=== PATIENT | female | born 1965 | race Caucasian/White ===

== ENCOUNTER 2017-06-20 16:48 | Emergency (ER) | payer SELFPAY ==
--- NOTE | 2017-06-20 17:26 | ER Document Report ---
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 She reports her blood pressure has been high for a while, she is not on any blood pressure medications. Recently her psychiatrist put her on prazosin for anxiety and sleep, it made her feel bad causing dizziness and waking up with headaches so she stopped that medication. She does smoke. I have greeted and performed a rapid initial assessment of this patient. A comprehensive ED assessment and evaluation of the patient, analysis of test results and completion of the medical decision making process will be conducted by additional ED providers. - Related Data Allergies/Adverse Reactions: Sulfa (Sulfonamide Antibiotics) Allergy (Verified 06/20/17 17:20) Physical Exam - Vital signs Vitals: Temp Pulse Resp BP Pulse Ox 97.6 F 87 16 169/100 H 99 06/20/17 17:09 06/20/17 17:09 06/20/17 17:09 06/20/17 17:09 06/20/17 17:09 Course - Vital Signs Vital signs: Temp Pulse Resp BP Pulse Ox 97.6 F 87 16 169/100 H 99 06/20/17 17:09 06/20/17 17:09 06/20/17 17:09 06/20/17 17:09 06/20/17 17:09
[2017-06-20 18:02] LABS: ABSOLUTE BASOPHILS # (AUTO) 0.1 10^3/uL (0.0-0.2); ABSOLUTE EOSINOPHILS # (AUTO) 0.2 10^3/uL (0.0-0.6); ABSOLUTE LYMPHOCYTES (AUTO) 3.3 10^3/uL (0.5-4.7); ABSOLUTE MONOCYTES (AUTO) 0.7 10^3/uL (0.1-1.4); ABSOLUTE NEUT (AUTO) 5.1 10^3/uL (1.7-8.2); BASOPHILS % (AUTO) 1.3 % (0-2); HEMATOCRIT 46.5 % (36.0-47.0); HEMOGLOBIN 15.8 g/dL (12.0-15.5); MEAN CORPUSCULAR HEMOGLOBIN 31.8 pg (27.0-33.4); MEAN CORPUSCULAR HGB CONC 34.1 g/dL (32.0-36.0); MEAN CORPUSCULAR VOLUME 93 fl (80-97); MONOCYTES % (AUTO) 7.3 % (3-13); PLATELET COUNT 323 10^3/uL (150-450); RED BLOOD COUNT 4.98 10^6/uL (3.72-5.28); SEGMENTED NEUTROPHILS % (AUTO) 54.4 % (42-78); TOTAL CELLS COUNTED % (AUTO) 100 %; WHITE BLOOD COUNT 9.3 10^3/uL (4.0-10.5)
--- NOTE | 2017-06-20 18:04 | ER Document Report ---
ED Cardiac - General Chief Complaint: Chest Pain Stated Complaint: CHEST PAIN Time Seen by Provider: 06/20/17 17:19 Notes: The patient is a 52-year-old female, past medical history hypertension, current smoker, anxiety, chronic headaches, presents with several hours of right upper chest pain that feels like a dull ache. She also had an episode where the pain went into her right shoulder, but is no longer having the radiation of pain. She took a baby ASA earlier today. She was taking prazosin for her blood pressure and anxiety, but she has ran out of the medications. She moved to [place] with her sister, but has not had a primary care physician or presentation team member yet. Patient also having her mild dull headache that she has had multiple times in the past and said that Excedrin usually helps. Patient denies numbness, tingling, shortness of breath, back pain, nausea, vomiting, fevers, cough, hemoptysis, leg swelling or recent travel. - Related Data Allergies/Adverse Reactions: rifampin Allergy (Verified 06/20/17 17:25) Sulfa (Sulfonamide Antibiotics) Allergy (Verified 06/20/17 17:20) Home Medications: Current Home Medications Bupropion HCl [Wellbutrin Sr 150 mg Tablet] 1 tab PO DAILY 06/20/17 [History] Cyclobenzaprine HCl [Flexeril 10 mg Tablet] 10 mg PO TIDP PRN 06/20/17 [History] Hydrocodone/Acetaminophen [Vicodin Hp 10-300 mg Tablet] 1 tab PO Q6HP PRN [History] Levothyroxine Sodium [Synthroid] 125 mcg PO DAILY 06/20/17 [History] Lorazepam [Ativan 1 mg Tablet] 2 mg PO BID PRN 06/20/17 [History] Tramadol HCl [Ultram] 100 mg PO TID PRN 06/20/17 [History] Past Medical History - General Information source: Patient - Social History Smoking Status: Current Every Day Smoker Chew tobacco use (# tins/day): No Frequency of alcohol use: None Drug Abuse: None Family History: Reviewed & Not Pertinent Patient has suicidal ideation: No Patient has homicidal ideation: No Renal/ Medical History: Denies: Hx Peritoneal Dialysis Psychiatric Medical History: Reports: Hx Depression Comment Only: Hx Attention Deficit Hyperactivity Disorder - anxiety Past Surgical History: Reports: Hx Appendectomy, Hx Section, Hx Orthopedic Surgery Review of Systems - Review of Systems Notes: REVIEW OF SYSTEMS: CONSTITUTIONAL: -fevers, -chills EENT: -eye pain, -difficulty swallowing, -nasal congestion CARDIOVASCULAR: +chest pain, -syncope. RESPIRATORY: -cough, -SOB GASTROINTESTINAL: -abdominal pain, - nausea, -vomiting, -diarrhea GENITOURINARY: -dysuria, -hematuria MUSCULOSKELETAL: -back pain, -neck pain SKIN: -rash or skin lesions. HEMATOLOGIC: -easy bruising or bleeding. LYMPHATIC: -swollen, enlarged glands. NEUROLOGICAL: -altered mental status or loss of consciousness, +headache, - neurologic symptoms PSYCHIATRIC: -anxiety, -depression. ALL OTHER SYSTEMS REVIEWED AND NEGATIVE. Physical Exam - Vital signs Vitals: Temp Pulse Resp BP Pulse Ox 97.6 F 87 16 169/100 H 99 06/20/17 17:09 06/20/17 17:09 06/20/17 17:09 06/20/17 17:09 06/20/17 17:09 - Notes Notes: PHYSICAL EXAMINATION: GENERAL: Well-appearing, well-nourished and in no acute distress. HEAD: Atraumatic, normocephalic. EYES: Pupils equal round and reactive to light, extraocular movements intact, sclera anicteric, conjunctiva are normal. ENT: nares patent, oropharynx clear without exudates. Moist mucous membranes. NECK: Normal range of motion, supple without lymphadenopathy LUNGS: Breath sounds clear to auscultation bilaterally and equal. No wheezes rales or rhonchi. HEART: Regular rate and rhythm without murmurs ABDOMEN: Soft, nontender, normoactive bowel sounds. No guarding, no rebound. No masses appreciated. EXTREMITIES: Normal range of motion, no pitting or edema. No cyanosis. NEUROLOGICAL: Cranial nerves grossly intact. Normal speech, normal gait. Normal sensory and motor exams. PSYCH: Normal mood, normal affect. SKIN: Warm, Dry, normal turgor, no rashes or lesions noted. Course - Re-evaluation Re-evalutation: Patient with about 6 hours of right upper chest pain. 2 EKGs performed 2 hours apart do not show any ischemic or dynamic changes. 2 sets of troponins are also negative and chest x-ray does not show any acute findings. Her HEART score is 3 and her symptoms are atypical for aortic dissection or PE at this time. Provided patient with follow-up at primary care physician and presentation team member for further evaluation and treatment. She is requesting a new blood pressure medication, since she thinks that prazosin has too many side effects. Patient also with her dull headache that she frequently has and is chronic in nature. No focal neuro deficits and symptoms are atypical for meningitis, SAH or ICH at this time. Will begin her on low-dose amlodipine until she can see her primary care physician for further adjustments. Given very strict return precautions and she understands. - Vital Signs Vital signs: Temp Pulse Resp BP Pulse Ox 97.6 F 87 18 162/98 H 100 06/20/17 17:09 06/20/17 17:09 06/20/17 19:00 06/20/17 18:41 06/20/17 19:00 - Laboratory Result Diagrams: 06/20/17 17:45 06/20/17 17:45 Laboratory results interpreted by me: 06/20/17 06/20/17 06/20/17 17:45 17:45 17:45 Hgb 15.8 H Carbon Dioxide 33 H Calcium 10.3 H Ur Leukocyte Esterase TRACE H - Diagnostic Test Radiology reviewed: Image reviewed, Reports reviewed Radiology results interpreted by me: CXR: NAD - EKG Interpretation by Me EKG shows normal: Sinus rhythm, [place], Intervals, QRS Complexes, ST-T Waves Rate: Normal When compared to previous EKG there are: Previous EKG unavailable Discharge - Discharge Clinical Impression: Chest pain Qualifiers: Chest pain type: unspecified Qualified Code(s): R07.9 - Chest pain, unspecified Hypertension Qualifiers: Hypertension type: unspecified Qualified Code(s): I10 - Essential (primary) hypertension Condition: Stable Disposition: HOME, SELF-CARE Additional Instructions: CHEST PAIN OF UNCLEAR CAUSE: The exact cause of your chest pain isn't clear. Fortunately, there is no evidence of a dangerous medical condition. Further testing may be required to find the source of the pain. Most often, we find that this pain is coming from the chest wall -- the muscles or rib joints in the chest. But chest pain can come from the lung and lung lining, the esophagus, the heart valves or heart lining, and even the stomach or gallbladder. Rest. Eat lightly until the pain is gone. We may prescribe medicine for pain and inflammation. You should call the physician immediately if the pain radiates to the shoulder, jaw or arms; if you start to run a fever or develop a cough; or if you develop shortness of breath, or other new or alarming symptoms. NORMAL EXAM AND WORKUP: At this time, your examination and workup show no significant abnormality. No significant abnormal physical findings were noted. All laboratory, EKG, and imaging (x-ray, CT scans, ultrasound) studies that were ordered show no significant abnormality. Although your examination and all studies that were ordered showed no significant abnormal finding, there are no examinations and no studies that are 100% accurate. There is always the possibility that some abnormality could exist and not be detected with physical examination or within the limits and capabilities of laboratory and other studies. You should return or follow up as you were instructed on your visit today for further evaluation if your symptoms do not resolve. CHEST WALL PAIN: Your chest pain may be coming from the chest wall. This is often caused by straining the muscles or joints in the chest during physical activity, direct trauma, coughing, or vigorous vomiting. Persons with arthritis are especially prone to this type of pain, due to inflammation of the cartilage joints near the breast bone. Occasionally, no cause can be found. Rest from strenuous physical activity. This kind of chest pain is usually made worse by movement of the chest. Depending on the symptoms, we may prescribe medicine for pain, muscle relaxation, and antiinflammatory effects. If the pain is new, and seems to be due to muscle strain, cold packs can help. Otherwise, apply gentle warmth to the painful area for 15 minutes every hour or two. You should call contact the doctor immediately if things change. Further evaluation is needed if you develop a fever or cough, if the nature of the pain changes, or if you become short of breath. ANGINA EPISODE: Your physician has diagnosed the pain you experienced as an episode of angina. Angina occurs when a portion of the heart muscle temporarily lacks oxygen. It does not cause any permanent heart damage, but serves as a warning. Hospitalization is not necessary now. Evaluation of your cardiac condition , and medical therapy for angina will be necessary. It's important you be sure to keep all appointments and take medication exactly as prescribed. Angina is usually treated with a type of "nitrate" medication. This is available as ointment, pills, or sublingual (under the tongue) tablets. Depending on your clinical situation, other medications may be added to help control angina. These may include beta blockers or calcium blockers. If episodes of angina are occurring with increased frequency, or if chest pain lasts longer than 15 minutes or does not respond to nitroglycerin, you must seek emergency medical care immediately. ACID REFLUX DISEASE (GERD): Gastro-Esophageal Reflux Disease (GERD) is caused by stomach acid refluxing back up into the esophagus. The valve at the end of the esophagus may be weak. This is common in persons with a hiatal hernia. GERD symptoms can include indigestion, chest pain, heartburn, or food "sticking." Certain foods, alcohol, and aspirin can make GERD worse. Treatment depends on the severity. Usually, antacids or acid-suppressing medicines are used. When the esophagus is acutely inflamed, the physician will often prescribe membrane-protective drugs such as Carafate. Some patients benefit from medication such as Reglan that tightens the valve at the top of the stomach. Avoid those foods that bring on your symptoms. For many people, these foods are coffee, chocolate, onions, garlic, and carbonated drinks. Don't use alcohol, aspirin, caffeine, or tobacco. Don't eat late at night -- within 4 hours of bedtime. Don't over-eat. If necessary, elevate the head of your bed about 4 inches so that stomach acid will not roll up into your esophagus. Call the doctor if you develop severe chest pain, inability to swallow fluids, fever, or worsening symptoms. ASPIRIN: Aspirin has been shown to have a beneficial effect on blood circulation by reducing the clotting effect of platelets in the blood. These beneficial effects can be achieved by taking just a single baby (81 mg) aspirin a day. It is recommended that any person over the age of forty take a single baby aspirin every day for heart and brain circulation, unless you are allergic to aspirin or have some significant bleeding disorder. It is strongly recommended that people who have proven cardiac or blood circulation disturbances should take a baby aspirin every day. FOLLOW-UP CARE: If you have been referred to a physician for follow-up care, call the physician s office for an appointment as you were instructed or within the next two days. If you experience worsening or a significant change in your symptoms, notify the physician immediately or return to the Emergency Department at any time for re-evaluation. HIGH BLOOD PRESSURE REQUIRING TREATMENT: Your blood pressure is high. This is called "hypertension." Today's reading was 168/98 (normal is less than 140/90). Your history and exam suggest that this is not a temporary problem. You need treatment of your blood pressure. If left untreated, high blood pressure greatly increases your risk of heart attack and stroke. Please don't ignore this problem. If you have blood pressure medicine but aren't using it regularly, start taking it again. Some simple things you can do to help are: Get some aerobic exercise for at least 20 minutes on a daily basis. (See your doctor before beginning any new exercise program.) Eat a low-fat diet. Lose excess weight. Avoid salty foods and avoid adding salt to any of the foods you eat. Avoid diet pills, decongestants, "energizing" herbs, and other medicines that elevate blood pressure. There are many different medicines that treat blood pressure. If your medication causes unpleasant side effects, call your doctor. There are others you can try. Treating hypertension is a life-long investment in your health. CALCIUM CHANNEL BLOCKERS: A medication of the calcium channel renetta type has been prescribed for you. Examples of this type of medicine are Calan, Isoptin, Procardia, and Cardizem. These medicines have a variety of uses, including prevention of angina attacks, treatment of blood pressure, regulation of certain heart rhythm problems, and prevention of migraine headaches. Calcium channel blockers work by interfering with the flow of calcium in cell membranes. This results in dilation of blood vessels, and slowing of electrical conduction in the heart. A slight dizziness (due to a fall in blood pressure) may occur with the first dose, and sometimes even with later doses. This may make you prone to dizziness if you stand up suddenly. Call the doctor if lightheadedness is severe, or if you develop palpitations, shortness of breath, or any other new or alarming symptoms. FOLLOW-UP CARE: If you have been referred to a physician for follow-up care, call the physician s office for an appointment as you were instructed or within the next two days. If you experience worsening or a significant change in your symptoms, notify the physician immediately or return to the Emergency Department at any time for re-evaluation. Prescriptions: Amlodipine Besylate 5 mg PO DAILY #30 tab Referrals: JAZMIN LARRY MD [ACTIVE STAFF] - Follow up as needed ELLIS CHASE MD [ACTIVE STAFF] - Follow up as needed
--- NOTE | 2017-06-20 18:09 | RADIOLOGY REPORT (SQ) ---
EXAM DESCRIPTION: CHEST PA/LAT COMPLETED DATE/TIME: 06/20/2017 5:54 pm REASON FOR STUDY: chest pain, elevated BP COMPARISON: None. EXAM PARAMETERS: NUMBER OF VIEWS: two views TECHNIQUE: Digital Frontal and Lateral radiographic views of the chest acquired. RADIATION DOSE: NA LIMITATIONS: none FINDINGS: LUNGS AND PLEURA: No opacities, masses or pneumothorax. No pleural effusion. MEDIASTINUM AND HILAR STRUCTURES: No masses or contour abnormalities. HEART AND VASCULAR STRUCTURES: Heart normal size. No evidence for failure. BONES: No acute findings. HARDWARE: None in the chest. OTHER: No other significant finding. IMPRESSION: NO SIGNIFICANT RADIOGRAPHIC FINDING IN THE CHEST. TECHNICAL DOCUMENTATION: JOB ID: [id number] [employer]- All Rights Reserved
[2017-06-20 18:15] LABS: APPEARANCE,URINE SLIGHTLY-CLOUDY; BILIRUBIN,URINE NEGATIVE (NEGATIVE); COLOR,URINE YELLOW; GLUCOSE, URINE NEGATIVE (NEGATIVE); KETONES,URINE NEGATIVE (NEGATIVE); LEUKOCYTE ESTERASE,URINE TRACE (NEGATIVE); NITRITE,URINE NEGATIVE (NEGATIVE); PROTEIN,URINE NEGATIVE (NEGATIVE); URINE SPECIFIC GRAVITY 1.016; UROBILINOGEN,URINE NEGATIVE mg/dL (<2.0)
[2017-06-20 18:17] LABS: ALANINE AMINOTRANSFERASE 20 U/L (9-52); ALKALINE PHOSPHATASE 62 U/L (38-126); ANION GAP 10 (5-19); ASPARTATE AMINO TRANSFERASE 19 U/L (14-36); BILIRUBIN,DIRECT 0.2 mg/dL (0.0-0.4); BILIRUBIN,TOTAL 0.2 mg/dL (0.2-1.3); BLOOD UREA NITROGEN 15 mg/dL (7-20); CALCIUM 10.3 mg/dL (8.4-10.2); CARBON DIOXIDE 33 mmol/L (22-30); CHLORIDE 98 mmol/L (98-107); CREATINE KINASE 55 U/L (30-135); GLUCOSE 96 mg/dL (75-110); POTASSIUM 4.1 mmol/L (3.6-5.0); SODIUM 140.7 mmol/L (137-145); TOTAL PROTEIN 8.2 g/dL (6.3-8.2)
[2017-06-20] MEDS ORDERED: AMLODIPINE BESYLATE 5 MG TABLET PO ONE (19:44)
[2017-06-20] MEDS ORDERED: IBUPROFEN 600 MG TABLET PO ONE (19:58)
[2017-06-20] MEDS ORDERED: ACETAMINOPHEN 325 MG TABLET PO ONE (19:58)
[2017-06-20 20:11] VITALS: BP 162/99
--- NOTE | 2017-06-23 12:46 | EKG REPORT ---
SEVERITY:- ABNORMAL ECG - SINUS RHYTHM RIGHT ATRIAL ABNORMALITY BORDERLINE INFERIOR Q WAVES BORDERLINE T ABNORMALITIES, ANT-LAT LEADS : Confirmed by: Alivia Meadows MD 23-Jun-2017 12:45:40
--- NOTE | 2017-06-23 12:46 | EKG REPORT ---
SEVERITY:- ABNORMAL ECG - SINUS RHYTHM CONSIDER INFERIOR INFARCT NONSPECIFIC T ABNORMALITIES, ANT-LAT LEADS : Confirmed by: Alivia Meadows MD 23-Jun-2017 12:45:36
== END 2017-06-20 20:11 | disposition home or self-care (01) ==
LOC: ER 16:48
DX: R07.9 Chest pain, unspecified (principal); I10 Essential (primary) hypertension; F17.200 Nicotine dependence, unspecified, uncomplicated; F41.9 Anxiety disorder, unspecified; R51 Headache; M25.511 Pain in right shoulder; Z79.899 Other long term (current) drug therapy
CPT/HCPCS: 36415; 71020; 80053; 81001; 82550; 84484; 85025; 93005; 93010; 99285

== ENCOUNTER 2017-08-08 15:25 | Emergency (ER) | payer SELFPAY ==
[2017-08-08 15:45] VITALS: BP 143/94
--- NOTE | 2017-08-08 16:23 | ER Document Report ---
ED Medical Screen (RME) - General Chief Complaint: Suicidal Ideation Stated Complaint: BACK PAIN Time Seen by Provider: 08/08/17 16:17 Mode of Arrival: Ambulatory Information source: Patient Notes: This is a 52-year-old female with a history of chronic back pain, depression and anxiety who presents to the emergency room with back pain and depression in the setting of running out of her medicines. The patient gets her medicines from [place] (she is in town temporarily for the next few months with her sister). She states that her medicines were supposed to be mailed to her and she has been without for the last 3 days. She also states that she recently fell and she has increasing back pain. She denies any saddle anesthesia, urinary retention or any changes in motor weakness. The patient does ambulate with a cane TRAVEL OUTSIDE OF THE [place] IN LAST 30 DAYS: No - HPI Onset: Last week Onset/Duration: Gradual Quality of pain: Dull Severity: Moderate Pain Level: 2 Associated Symptoms: denies: Chest pain, Shortness of breath Exacerbated by: Movement Relieved by: Remaining still Similar symptoms previously: Yes Recently seen / treated by doctor: No - Related Data Smoking: Cigarettes Frequency of alcohol use: None Drug Abuse: None Allergies/Adverse Reactions: rifampin Allergy (Verified 08/08/17 16:17) Sulfa (Sulfonamide Antibiotics) Allergy (Verified 08/08/17 16:17) Past Medical History - General Information source: Patient - Social History Cigarette use (# per day): Yes Chew tobacco use (# tins/day): No - 1 pack per day Frequency of alcohol use: None Drug Abuse: None Lives with: Family Family history: None - Past Medical History Cardiac Medical History: Reports: Hx Hypercholesterolemia, Hx Hypertension Pulmonary Medical History: Reports: Hx COPD Renal/ Medical History: Denies: Hx Peritoneal Dialysis GI Medical History: Reports: Hx Gastroesophageal Reflux Disease Psychiatric Medical History: Reports: Hx Depression Comment Only: Hx Attention Deficit Hyperactivity Disorder - anxiety Past Surgical History: Reports: Hx Appendectomy, Hx Section - x2, Hx Orthopedic Surgery - Right foot Review of Systems - Review of Systems Notes: Review of systems: Constitutional: Denies fever, chills. EENT: Denies ear pain, sinus tenderness, throat pain, throat swelling. Cardiovascular: Denies chest pain, palpitations, dyspnea or edema. Respiratory: Denies wheezing, cough, hemoptysis. Abdomen: Denies abdominal pain, nausea, vomiting, diarrhea. Denies BRBPR or melena. Genitourinary: Denies dysuria, pyuria, hematuria, flank pain. Musculoskeletal: See H&P Neurologic: See H&P Psychiatric: No suicidal ideation Skin: Denies rash, lesions. Physical Exam - Vital signs Vitals: Temp Pulse Resp BP Pulse Ox 98.7 F 85 16 143/94 H 99 08/08/17 15:41 08/08/17 15:41 08/08/17 15:41 08/08/17 15:41 08/08/17 15:41 Notes: Physical exam: GENERAL: 52-year-old female, alert and oriented 3, no acute distress HEAD: Atraumatic, normocephalic. EYES: Pupils equal round and reactive to light, extraocular movements intact, sclera anicteric, conjunctiva are normal. ENT: Moist mucous membranes. NECK: Normal range of motion, supple LUNGS: Breath sounds clear to auscultation bilaterally and equal. No wheezes rales or rhonchi. HEART: Regular rate and rhythm without murmurs, rubs or gallops. ABDOMEN: Soft, normoactive bowel sounds. No tenderness to palpation. No guarding, no rebound. No masses appreciated. EXTREMITIES: Normal range of motion, no pitting or edema. No clubbing or cyanosis. NEUROLOGICAL: Cranial nerves II through XII grossly intact. Normal speech, moving all extremities. PSYCH: Normal mood, normal affect. SKIN: Warm, Dry, normal turgor, no rashes or lesions noted. Course - Vital Signs Vital signs: Temp Pulse Resp BP Pulse Ox 98.7 F 85 16 143/94 H 99 08/08/17 15:41 08/08/17 15:41 08/08/17 15:41 08/08/17 15:41 08/08/17 15:41 Doctor's Discharge - Discharge Clinical Impression: Chronic back pain, Depression Condition: Stable Disposition: HOME, SELF-CARE Instructions: Anxiety ([facility]) Additional Instructions: Thank you for choosing [facility] for your care. The examination and treatment you have received in the Emergency Department today has been rendered on an emergency basis only and is not intended to be a substitute for complete medical care. You should contact your doctor as it is important that she/he examine you for any new or remaining problems. If given a copy of any lab tests or radiology reports, please bring them with you when you see your physician. If your problem worsens or new symptoms appear and you are unable to arrange prompt follow-up care, return to the Emergency Department. Instructions: Continue current medicines Return to the emergency room if you have any numbness to the inner thighs, motor weakness. Follow-up with a primary care doctor so that you could get seen by a back specialist or commercial painter in town Primary Care Doctor's affiliated with [facility]: If you do not have a primary care doctor or you are unable to get an appointment during that time, you can try one of the doctor's below. These are internal medicine doctor's that have admitting priveledges to the hospital ( they will see you both in the office as well as in this hospital if you are ever hospitalized here). Dr. Katy Hull [address], [place] [address] [phone] Dr Kraus Address: [address] [place] [address] [place] [address] Dr Mendoza Address: [address] [place] [address] , [place] [address] If you don't have insurance: follow-up at the [facility] which is a free clinic. [address], [address] [place] [id number] Prescriptions: Gabapentin 200 mg PO QHS #7 capsule Hydrocodone/Acetaminophen [[place] 5-325 mg Tablet] 1 tab PO Q6HP PRN #28 tablet PRN Reason: Amlodipine Besylate 5 mg PO DAILY #7 tab Bupropion HCl [Wellbutrin Sr 150 mg Tablet] 1 tab PO DAILY #7 tablet.sa Citalopram Hydrobromide [Celexa 40 mg Tablet] 1 tab PO DAILY #30 tablet Levothyroxine Sodium 125 mcg PO DAILY #7 tablet Lorazepam [Ativan 1 mg Tablet] 1 tab PO TID #20 tablet
== END 2017-08-08 16:30 | disposition home or self-care (01) ==
LOC: ER 15:25
DX: F32.9 Major depressive disorder, single episode, unspecified (principal); G89.29 Other chronic pain; M54.9 Dorsalgia, unspecified; T50.906A Underdosing of unspecified drugs, medicaments and biological substances, initial encounter; Z91.128 Patient's intentional underdosing of medication regimen for other reason; Z91.14 Patient's other noncompliance with medication regimen; Z91.81 History of falling; F17.200 Nicotine dependence, unspecified, uncomplicated; I10 Essential (primary) hypertension; J44.9 Chronic obstructive pulmonary disease, unspecified; Z88.1 Allergy status to other antibiotic agents; Z88.2 Allergy status to sulfonamides
CPT/HCPCS: 99284

== ENCOUNTER 2017-10-08 16:36 | Emergency (ER) | payer SELFPAY ==
[2017-10-08 16:40] VITALS: BP 149/98
[2017-10-08] MEDS ORDERED: KETOROLAC TROMETHAMINE INJ/PF 30 MG/1 ML SDV IM ONE (17:15)
--- NOTE | 2017-10-08 17:36 | ER Document Report ---
ED Neck/Back Problem - General Chief Complaint: Back Pain Stated Complaint: BACK PAIN Time Seen by Provider: 10/08/17 16:52 Mode of Arrival: Ambulatory Information source: Patient TRAVEL OUTSIDE OF THE [place] IN LAST 30 DAYS: No - HPI Patient complains to provider of: Pain, Lower back Notes: Patient is here with complaints of low back pain. Patient has a history of low back pain. States that this is his normal pain that she typically has. The pain radiates down the right leg which is normal for her as well. She denies any recent falls or injuries. She is not on any blood thinning medications. She is from [facility], but is here visiting. She is not sure exactly how long she is going to be in [facility]. She was established with a new primary care doctor yesterday and had all of her medications refilled except for her Ativan and her Moraga. She is here in the emergency department requesting a refill of her Ativan and her Moraga. Patient was seen here a few months ago and had all of her medications refilled at that time. She denies any abdominal pain. She denies any nausea, vomiting, diarrhea. She denies any bowel or bladder dysfunction. She is not on blood thinners. She denies any IV drug use. No chest pain or shortness of breath. No rash. She denies dysuria or hematuria. Her pain is worse with movement and better with rest. She states that she has been taking Flexeril without any relief. She denies any other complaints at this time. - Related Data Allergies/Adverse Reactions: rifampin Allergy (Verified 08/08/17 16:17) Sulfa (Sulfonamide Antibiotics) Allergy (Verified 08/08/17 16:17) Past Medical History - Social History Smoking Status: Current Every Day Smoker Chew tobacco use (# tins/day): No Frequency of alcohol use: Rare Drug Abuse: None Family History: Reviewed & Not Pertinent Patient has suicidal ideation: No Patient has homicidal ideation: No - Past Medical History Cardiac Medical History: Reports: Hx Hypercholesterolemia, Hx Hypertension Pulmonary Medical History: Reports: Hx COPD Renal/ Medical History: Denies: Hx Peritoneal Dialysis GI Medical History: Reports: Hx Gastroesophageal Reflux Disease Psychiatric Medical History: Reports: Hx Depression Comment Only: Hx Attention Deficit Hyperactivity Disorder - anxiety Past Surgical History: Reports: Hx Appendectomy, Hx Section - x2, Hx Orthopedic Surgery - Right foot Review of Systems - Review of Systems -: Yes All other systems reviewed and negative Physical Exam - Vital signs Vitals: Temp Pulse Resp BP Pulse Ox 97.8 F 91 14 149/98 H 97 10/08/17 16:39 10/08/17 16:39 10/08/17 16:39 10/08/17 16:39 10/08/17 16:39 - Notes Notes: GENERAL: alert, cooperative, nontoxic, no distress. HEAD: normocephalic, atraumatic EYES: conjunctiva pink without discharge, no external redness or swelling. EARS: no external swelling, no external redness NOSE: atraumatic, no external swelling MOUTH/THROAT: mucous membranes moist and pink, posterior pharynx without erythema, swelling, exudate. No trismus or drooling. NECK: soft, supple, full range of motion, no meningismus. CHEST: no distress, lungs clear and equal throughout. No wheezing, rales, rhonchi. CARDIAC: regular rate and rhythm, no murmur, normal capillary refill, normal pulses. No peripheral edema noted. ABDOMEN: soft, nontender, no pusatile mass. BACK: No CVA tenderness. Tenderness across the entire lower back and lumbar paraspinal muscles bilaterally. Mild limited range of motion secondary to pain. EXTREMITIES: full range of motion of all extremities. No redness, no swelling. NEURO: alert and oriented A&O x 3, no focal deficits, full range of motion of all extremities. 5 out of 5 flexion and extension of the lower extremities bilaterally. Patellar and Achilles deep tendon reflexes are +2 bilaterally. Normal sensation with no saddle anesthesia. Patient can dorsiflex the great toes bilaterally. PYSCH: appropriate mood, affect. Patient is cooperative. SKIN: pink, warm, dry, no rash. Course - Re-evaluation Re-evalutation: 10/08/17 17:33 Patient is nontoxic appearing with stable vitals. Patient has a history of chronic back pain. The pain as she is experiencing today is her typical chronic back pain. She has had no recent falls or injuries. Patient was seen by new primary care physician yesterday and had all of her medications refilled aside from her Ativan and her Moraga and she is here requesting a refill of these medications. She has been referred to pain management as well as psychiatry to have these medications refilled. Patient states that she has been out of these medications for quite some time. On exam the patient has no sign or risk of cauda equina, epidural abscess/bleed, discitis, osteomyelitis, AAA, UTI, pyelonephritis. She has a completely benign exam at this time with no saddle anesthesia. She has a normal neurovascular exam. Normal reflexes. Patient can be discharged home without further workup at this time. I explained that we cannot refill narcotic medications were as well as benzodiazepines from the emergency department. I will discharge the patient home with a prescription for Voltaren as well as Zanaflex. She is instructed to follow-up with her pain doctor as referred per her primary care doctor as well as her psychiatrist as referred per her family doctor. She was instructed to follow-up sooner for worsening pain, high fever, difficulty controlling her bowels or bladder, abdominal pain, or for any further concerns. The patient is noted to have elevated blood pressure during today's emergency department visit. The patient was informed of this finding. The patient was instructed that this may be related to pre-hypertension and requires further evaluation with a primary care provider. The patient has no hypertensive symptoms at this time. The patient's emergency department workup and current diagnosis were explained to the patient and or family. Follow-up instructions were provided. Medications if prescribed were discussed. Instructions for when to return to the emergency department including specific worrisome symptoms were discussed with the patient and/or family. - Vital Signs Vital signs: Temp Pulse Resp BP Pulse Ox 97.8 F 91 14 149/98 H 97 10/08/17 16:39 10/08/17 16:39 10/08/17 16:39 10/08/17 16:39 10/08/17 16:39 Discharge - Discharge Clinical Impression: Chronic back pain Qualifiers: Back pain location: low back pain Back pain laterality: bilateral Sciatica presence: with sciatica Sciatica laterality: sciatica of right side Qualified Code(s): M54.41 - Lumbago with sciatica, right side; G89.29 - Other chronic pain ; G89.29 - Other chronic pain Condition: Stable Disposition: HOME, SELF-CARE Instructions: Ice Packs ([facility]), Low Back Pain ([facility]), Chronic Back Pain ([facility]), Chronic Pain Control ([facility]) Additional Instructions: Take medications as prescribed. Stop taking her Flexeril. Follow-up with the pain doctor referred by your family doctor at the next available appointment. Follow-up with the psychiatrist referred by her family doctor to next available appointment. Follow-up sooner for severe worsening pain, high fever, go to controlling her bowels or bladder, severe abdominal pain, persistent vomiting, or for any further concerns. Your blood pressure was elevated during today's visit. Have this rechecked with your doctor. Prescriptions: Diclofenac Sodium [Voltaren 50 Mg Deysi.] 50 mg PO BID #20 tablet. Tizanidine HCl [Zanaflex 4 Mg Tablet] 4 mg PO BID PRN #10 tablet PRN Reason: Forms: Elevated Blood Pressure, Smoking Cessation Education Referrals: [facility] [Provider Group] - Follow up as needed
== END 2017-10-08 17:42 | disposition home or self-care (01) ==
LOC: ER 16:36
DX: M54.41 Lumbago with sciatica, right side (principal); G89.29 Other chronic pain; M79.604 Pain in right leg; Z79.899 Other long term (current) drug therapy; F17.200 Nicotine dependence, unspecified, uncomplicated; I10 Essential (primary) hypertension; J44.9 Chronic obstructive pulmonary disease, unspecified
CPT/HCPCS: 99283; 96372; J1885